=== PATIENT | female | born 1955 | race Caucasian/White ===

== ENCOUNTER 2016-05-31 14:43 | Outpatient (CLI) ==
[2015-09-30 20:53] VITALS: BMI 38.4
[2016-05-31 15:05] LABS: BASOPHILS % (AUTO) 0.4 % (0.0-3.0); EOSINOPHILS # (AUTO) 0.2 K/ul (0.0-0.7); EOSINOPHILS % (AUTO) 1.5 % (0.0-7.0); HEMATOCRIT 44.3 % (37.0-47.0); HEMOGLOBIN 14.7 g/dl (12.0-16.0); IMMATURE GRANULOCYTE % (AUTO) 0.3 % (0.0-5.0); LYMPHOCYTES # (AUTO) 4.9 K/uL (0.60-3.4); LYMPHOCYTES % (AUTO) 46.8 (10.0-50.0); MEAN CORPUSCULAR HEMOGLOBIN 30.2 pg (27.0-31.0); MEAN CORPUSCULAR HGB CONC 33.2 (31.8-35.4); MONOCYTES # (AUTO) 0.7 K/uL (0.4-2.0); MONOCYTES % (AUTO) 6.6 (0-10); NEUTROPHILS # (AUTO) 4.6 K/ul (2.0-6.9); NEUTROPHILS % (AUTO) 44.4; PLATELET COUNT 215 10^3/uL (140-440); RED BLOOD COUNT 4.87 10^6/ul (4.20-5.40); WHITE BLOOD COUNT 10.37 K/ul (4.6-10.2)
[2016-05-31 15:36] LABS: ALBUMIN 3.3 g/dL (3.4-5.0); ALBUMIN/GLOBULIN RATIO 0.83; ANION GAP 13.5; BILIRUBIN,TOTAL 0.31 mg/dL (0.00-1.20); BUN/CREATININE RATIO 16.66; CALCIUM 9.6 mg/dL (8.2-10.2); CHOL/HDL RATIO 4.2 (4.5-5.5); CREATININE 0.78 mg/dL (0.60-1.30); POTASSIUM 3.5 mmol/L (3.5-5.10); TOTAL PROTEIN 7.3 g/dL (5.8-8.1)
== END 2016-05-31 14:44 | disposition home or self-care (01) ==
LOC: LAB 14:43
PROVIDERS: ATTEND Emergency Medicine
DX: E11.9 Type 2 diabetes mellitus without complications (principal); I10 Essential (primary) hypertension; E78.5 Hyperlipidemia, unspecified
CPT/HCPCS: 36415; 80053; 80061; 83036; 84443; 85025

== ENCOUNTER 2016-06-03 12:33 | Outpatient (CLI) ==
[2015-09-30 20:53] VITALS: BMI 38.4
[2016-06-03 12:59] LABS: FLU INTERNAL QC INTERNAL QC VALID; RAPID FLU A NEGATIVE (NEGATIVE); RAPID FLU B NEGATIVE (NEGATIVE)
--- NOTE | 2016-06-03 13:08 | DI ---
EXAM: Chest two view, frontal and lateral views. HISTORY: Cough. COMPARISON: 09/30/2015, 04/21/2014. FINDINGS: The heart size is normal. There is no pulmonary vascular congestion. The lungs are dave r. No pleural effusion or pneumothorax is seen. No acute osseous abnormality identified. Since prior study, there has been no significant interval change. IMPRESSION: No acute cardiopulmonary process.
--- NOTE | 2016-06-03 14:26 | MRI ---
EXAM: MRI cervical spine without IV contrast. DATE: 03 June 2016. HISTORY: Neck pain, headache. TECHNIQUE: Sagittal and axial T1W and T2W sequences of the cervical spine along with sagittal IR an d coronal T2W sequences were obtained using 1.2 Sania magnet. No IV contrast. COMPARISON: MRI brain 25 October 2015. FINDINGS: Minimal rightward curvature of the upper cervical spine is seen. No acute c-spine fractu re, subluxation, osseous malignancy, or jumped facet is apparent. Cervical vertebra are normal in h eight. T2W/IR bright, T1W slightly dark, 3.8 mm focus in the anterior inferior endplate of C6 may b e due to degenerative endplate changes or small cyst. C5 vertebra is slightly narrow or in height c ompared to each other vertebra. Anterior osteophytes are most pronounced at C5-6 and C6-7. Cervica l intervertebral discs are normal in height. Spinal canal appears narrow at C3 through C6 levels. Cervical and upper thoracic spinal cord reveals no definitive syrinx, cord edema, myelomalacia, or n eoplasm. Visible brainstem and cerebellum are unremarkable. No definitive pituitary neoplasm is evident. Mi nor adenoid tissue prominence is likely benign. Mastoid air cells are normal bilaterally. Right lo be thyroid gland appears small in size, and the left thyroid lobe is not definitively seen. The sub mandibular and parotid glands are unremarkable. Trachea, larynx, and epiglottis are normal. No api tesha lung mass, pneumonia, or pleural effusion is detected. Segmental analysis: C1-2: No cord compression or central stenosis. A T2W bright, 17 x 5 x 12 mm crescentic focus in the lateral margin of the right C1/CT junction is likely a synovial cyst. C2-3: Minor posterior disc bulge (1.4 mm AP) does not contact the cord. Canal is 9.2 mm AP. Mild bilateral foraminal stenoses due to uncinate hypertrophy and mild bilateral facet arthropathy. C3-4: Short pedicles. Broad posterior disc/osteophyte complex (1.8 mm AP) does not cause cord comp ression. Canal is 7.7 mm AP. Moderate/marked right and moderate left foraminal stenoses are due to uncinate hypertrophy and mild/moderate right facet arthropathy. C4-5: Short pedicles. Broad posterior disc/osteophyte complex (1.7 mm AP) does not contact the cor d. Canal is 7.2 mm AP. Mild right and moderate/marked left foraminal stenoses are due to uncinate hypertrophy and mild facet arthropathy. C5-6: Short pedicles. Broad posterior disc/osteophyte complex (2.1 mm AP) does not contact the cor d. There is mild ligamentum flavum hypertrophy. Canal is 8.2 mm AP. Marked right and moderate lef t foraminal stenoses are due to uncinate hypertrophy, moderate right facet arthropathy and mild left facet arthropathy. C6-7: Broad posterior disc/osteophyte complex (2.2 mm AP) does not contact the cord. There is mild ligamentum flavum hypertrophy. Canal is 7.8 mm AP. Moderate right and mild left foraminal stenose s are due to uncinate hypertrophy and minor facet disease. C7-T1: Normal T1-2: Minor posterior disc bulge does not cause cord compression, central stenosis or foraminal humza nosis. IMPRESSIONS: 1. C-spine mild spondylosis, mild/moderate facet disease and multilevel DDD. 2. C1-2 arthritis with prominent synovial cyst near the right lateral joint space. 3. Multilevel central canal stenosis (C2-3: Mild. C3-4: Moderate. C4-5: Moderate. C5-6: Mild. C 6-7: Moderate). 4. Mild anterior cervical cord flattening. No syrinx or myelomalacia. 5. Multilevel high-grade foraminal stenosis as described. 6. Small thyroid gland. Correlate with surgical history.
== END 2016-06-03 12:34 | disposition home or self-care (01) ==
LOC: RAD 12:33
PROVIDERS: ATTEND Emergency Medicine
DX: R05 Cough (principal); R50.9 Fever, unspecified; R68.89 Other general symptoms and signs; M54.2 Cervicalgia; R51 Headache
CPT/HCPCS: 87804

== ENCOUNTER 2016-06-04 13:53 | Outpatient (CLI) ==
[2015-09-30 20:53] VITALS: BMI 38.4
--- NOTE | 2016-06-04 15:48 | MRI ---
EXAM: MRI brain without IV contrast. DATE: 04 June 2016. HISTORY: Headaches. TECHNIQUE: Sagittal T1W, axial T2W, axial FLAIR, axial T1W, axial DWI, and coronal T2W GRE sequence s of the brain were obtained using 1.2 Sania magnet. No IV contrast. COMPARISON: MRI brain 25 October 2015. FINDINGS: The ventricles and cisterns are normal in size and configuration. Many cerebral and cereb ellar sulci are mildly prominent due to involutional change. No midline shift, mass effect or locula bud extra-axial fluid collection is apparent. No acute infarct, hemorrhage or neoplasm is identifie d. Minimal T2W/FLAIR hyperintensity is observed in the white matter abutting each lateral ventricle . Small number 2-5 mm, T2W/FLAIR bright foci are scattered within the lai radiata and subcortica l white matter bilaterally. The jansen - white matter differentiation is normal. A T2W GRE dark focu s in the right globus pallidus appears benign. A T2W GRE dark focus (3 mm) in the region of the pin eal gland is likely benign calcification. The 7th/8th cranial nerve complexes, cerebellopontine ang les, brainstem, and visible cervical spinal cord are normal. The cerebellar tonsils extend near the inferior margin of the foramen magnum. There is no Chiari 1 malformation. The pituitary gland is normal in size and signal. Corpus callosum is normal in size and configuration. Left vertebral art wendy is larger than the right. Flow voids are present in the major intracranial arteries and in the dural venous sinuses. No aneurysm, AVM or dural venous sinus thrombosis is apparent. No orbit abno rmality is identified. The mastoid air cells are unremarkable. There is no sinus opacification. R ight maxillary sinus mucosal thickening vs small retention cyst (12 x 8.6 x 4 mm) is observed inferi donya. Frontal sinuses are hypoplastic. No neck mass or lymphadenopathy is detected. No calvarial neoplasm or acute fracture is evident. IMPRESSIONS: 1. No acute infarct, hemorrhage, mass or hydrocephalus. 2. Minimal/mild supratentorial small vessel disease. 3. Minor right basal ganglia benign mineral deposition. 4. Mild cerebral and cerebellar atrophy. 5. Minor right maxillary sinus disease.
== END 2016-06-04 13:54 | disposition home or self-care (01) ==
LOC: RAD 13:53
PROVIDERS: ATTEND Emergency Medicine
DX: R51 Headache (principal)

== ENCOUNTER 2016-06-24 09:00 | Outpatient (RCR) ==
[2015-09-30 20:53] VITALS: BMI 38.4
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
--- NOTE | 2016-06-24 11:04 | RS.OPPTDN ---
Subjective Date of Note: 06/24/16 Visit #: 2 Date of Evaluation: 06/19/16 Payer Source: Medicaid Treatment Diagnosis: Neck pain Current Subjective/complaints:: Patient reports her pain is tolerable this mornng ,but constantly present and it elevates as the day progresses. *Precautions: Left RTC repair Pain Assessment - Pain Description Pain Location: Neck and bilateal upper trap pain Pain Description: Tightness, Throbbing, Aching Pain Description: Constant pain with DEMARCO frequently Current Pain Intensity: 7/10 - Treatment Modality: Ultrasound Parameters/Method Applied: 10 mins. @ 1.5 w/cm2 to cervical/UT's. Patient Position: Sitting - Heat/Cryotherapy Treatment: Hot Pack (20 mins. prior to US) Interventions - Exercise/Activities/Manual Therapy Exercises/Activities: 10 mins. instruction in cervical ROM ,chin tucks,postural awareness. Total minutes of Exercise: 10 Manual Therapy: NA Total minutes of Manual Therapy: 0 HOME EXERCISE PROGRAM: pendulum exercise, scapular retraction - Charges Total Direct Minutes: 20 Total Treatment Time: 40 Procedures billed for this date of service:: hp,US,ex 1 Assessment: Patient attentive ,and motivated to improve.She does present with decreased cervical lordosis,guarded with all motions. Patient Education: Education of diagnosis, Body/Joint mechanics, Home Exercise Program, Home Safety, Activity Modification, Education of Plan of Care Short Term Goals Goal #1: Pt independent and compliant with basic HEP. Goal to be met by: 06/28/16 Progress towards Goal:: Progressing Goal #2: CROM WFL's. Goal to be met by: 06/28/16 Goal #3: Decreased neck pain to intermittent. Goal to be met by: 06/28/16 Goal to be met by: 02/02/16 Obstetrician Gynecologist Goals Goal #1: Pt knows HEP and to continue with exercises after D/C from therapy. Goal to be met by: 07/05/16 Goal #2: NDI score 18 Goal to be met by: 07/05/16 Goal #3: Neck pain < 5/10 Goal to be met by: 07/05/16 Goal #4: Pt able to perform all work related activities without limitation. Goal to be met by: 07/05/16 Plan PLAN OF CARE EXPIRES ON:: 07/05/16 ORDER # VISITS AND/OR THROUGH DATE: 07/05/2016 PLAN: Continue Plan of Care
== END 2016-07-02 ==
PROVIDERS: ATTEND Orthopaedic Surgery
DX: M50.30 Other cervical disc degeneration, unspecified cervical region (principal); M48.02 Spinal stenosis, cervical region; M99.81 Other biomechanical lesions of cervical region

== ENCOUNTER 2016-07-03 15:43 | Outpatient (RCR) ==
[2015-09-30 20:53] VITALS: BMI 38.4
--- NOTE | 2016-07-03 15:52 | RS.OPPTDN ---
Subjective Date of Note: 07/03/16 Visit #: 3 Date of Evaluation: 06/19/16 Payer Source: Medicaid Treatment Diagnosis: Neck pain Current Subjective/complaints:: Patient reports having a headache all the time. States she has one now. States her neck is not too bad today because she did not work. Pain Assessment - Pain Description Pain Location: Neck and head Current Pain Intensity: not rated, neck not as bad, but currently has DEMARCO - Treatment Modality: Ultrasound Parameters/Method Applied: X 10 mins to bilateral upper traps and lower cervical paraspinals @ 1.5 w/cm2 continuous Patient Position: Sitting - Heat/Cryotherapy Treatment: Hot Pack (X 15 mins to cervical spine prior to US) Interventions - Exercise/Activities/Manual Therapy Exercises/Activities: Reviewed scapular retraction and cervical retraction. Patient given 2 tennis balls and instructed on use of these for pressure at the subocciptal region to decrease DEMARCO pain. Total minutes of Exercise: x 6 mins Manual Therapy: soft tissue mobilization of suboccipital region for 5 mins. Patient reported resolution of DEMARCO pain following this treatment. HOME EXERCISE PROGRAM: scapular retraction, cervical retraction, - Charges Total Direct Minutes: 21 mins Total Treatment Time: 36 mins Procedures billed for this date of service:: , US Assessment: Patient reports resolution of headache pain with therapy treatment today. She is very receptive of information to use tennis balls to base of head to decrease headache pain. Patient Education: Education of diagnosis, Body/Joint mechanics, Home Exercise Program, Education of Plan of Care Short Term Goals Goal #1: Pt independent and compliant with basic HEP. Goal to be met by: 06/28/16 Progress towards Goal:: Progressing Goal #2: CROM WFL's. Goal to be met by: 06/28/16 Goal #3: Decreased neck pain to intermittent. Goal to be met by: 06/28/16 Progress towards Goal:: Progressing Alf Goals Goal #1: Pt knows HEP and to continue with exercises after D/C from therapy. Goal to be met by: 07/05/16 Goal #2: NDI score 18 Goal to be met by: 07/05/16 Goal #3: Neck pain < 5/10 Goal to be met by: 07/05/16 Progress towards goal: Progressing Goal #4: Pt able to perform all work related activities without limitation. Goal to be met by: 07/05/16 Plan PLAN OF CARE EXPIRES ON:: 07/05/16 ORDER # VISITS AND/OR THROUGH DATE: 07/05/2016 PLAN: Continue Plan of Care
--- NOTE | 2016-08-20 10:28 | RS.QUICKDC ---
Discharge from PT Date of Discharge: 07/08/16 Number of Visits: 3 Reason for Discharge: Patient eval orders are for 2x/wk for 2 weeks,seen 3/4 sessions,then order dates .
== END 2016-08-02 ==
PROVIDERS: ATTEND Orthopaedic Surgery
DX: M50.30 Other cervical disc degeneration, unspecified cervical region (principal); M48.02 Spinal stenosis, cervical region; M99.81 Other biomechanical lesions of cervical region

== ENCOUNTER 2016-10-29 10:57 | Outpatient (CLI) ==
[2015-09-30 20:53] VITALS: BMI 38.4
[2016-10-29 11:17] LABS: BASOPHILS % (AUTO) 0.3 % (0.0-3.0); EOSINOPHILS # (AUTO) 0.2 K/ul (0.0-0.7); EOSINOPHILS % (AUTO) 1.7 % (0.0-7.0); HEMATOCRIT 43.9 % (37.0-47.0); HEMOGLOBIN 14.5 g/dl (12.0-16.0); IMMATURE GRANULOCYTE % (AUTO) 0.3 % (0.0-5.0); LYMPHOCYTES # (AUTO) 3.7 K/uL (0.60-3.4); LYMPHOCYTES % (AUTO) 39.1 (10.0-50.0); MEAN CORPUSCULAR HEMOGLOBIN 30.4 pg (27.0-31.0); MONOCYTES # (AUTO) 0.6 K/uL (0.4-2.0); MONOCYTES % (AUTO) 6.6 (0-10); NEUTROPHILS # (AUTO) 4.9 K/ul (2.0-6.9); PLATELET COUNT 186 10^3/uL (140-440); RED BLOOD COUNT 4.77 10^6/ul (4.20-5.40); WHITE BLOOD COUNT 9.36 K/ul (4.6-10.2)
[2016-10-29 12:15] LABS: ALBUMIN 3.1 g/dL (3.4-5.0); ALBUMIN/GLOBULIN RATIO 0.86; ANION GAP 10.8; BILIRUBIN,TOTAL 0.48 mg/dL (0.00-1.20); BUN/CREATININE RATIO 18.18; CALCIUM 9.3 mg/dL (8.2-10.2); CHOL/HDL RATIO 4.3 (4.5-5.5); CREATININE 0.77 mg/dL (0.60-1.30); POTASSIUM 3.8 mmol/L (3.5-5.10); TOTAL PROTEIN 6.7 g/dL (5.8-8.1)
== END 2016-10-29 10:58 | disposition home or self-care (01) ==
LOC: LAB 10:57
PROVIDERS: ATTEND Internal Medicine
DX: E11.9 Type 2 diabetes mellitus without complications (principal); E78.5 Hyperlipidemia, unspecified; I10 Essential (primary) hypertension
CPT/HCPCS: 36415; 80053; 80061; 83036; 84443; 85025

== ENCOUNTER 2016-10-30 10:05 | Outpatient (CLI) ==
[2015-09-30 20:53] VITALS: BMI 38.4
--- NOTE | 2016-10-30 23:16 | MRI ---
EXAM: Lumbar spine MRI without contrast. HISTORY: Back pain. COMPARISON: Lumbar spine radiographs 11/17/2013. TECHNIQUE: Multiplanar, multisequence MR images were acquired of the lumbar spine without contrast. FINDINGS: Five lumbar-type vertebra are present. There is mild kyphosis at the thoracolumbar junct ion due to minor T11 and mild T12 chronic anterior wedging and mild chronic left anterior wedging of L1. No acute compression fractures are present. There is 1.5 mm retrolisthesis of L2 on L3 and a t race retrolisthesis of L3 on L4 and L4 on L5. Intrinsic bone marrow signal is normal. Prominent ve ntral osteophytes are present from T12-L1 to L3-4. There is endplate irregularity with disc space n arrowing and chronic Schmorl's nodes from T11-12 to L2-3. There is disc desiccation at L2-3. Conus medullaris ends at T12-L1 and has normal signal intensity. 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 The partially visualized liver, spleen and kidneys are unremarkable. There are no paravertebral mas ses. T12-L1: The intervertebral disc is normal. L1-2: The intervertebral disc is normal. L2-3: There is a mild disc bulge and mild bilateral facet arthropathy and ligamentum flavum hypertr ophy. This causes mild bilateral foraminal stenosis. There is no central canal stenosis. L3-4: There is a minor disc bulge that is asymmetric to the left which minimally narrows the inferi or left neural foramen. Mild bilateral facet arthropathy and ligamentum flavum hypertrophy is prese nt. There is no significant foraminal stenosis. L4-5: There is a minor left posterior disc bulge and mild bilateral hypertrophic facet arthropathy a nd ligamentum flavum hypertrophy without central canal stenosis. There is minor left foraminal sten osis. L5-S1: The intervertebral disc is normal. There is mild bilateral hypertrophic facet arthropathy an d ligamentum flavum hypertrophy. Tiny bilateral facet effusions are present. There is mild taperin g of the thecal sac. There is no foraminal stenosis. IMPRESSION: 1. Mild kyphosis is present at the thoracolumbar junction due to minor and mild chronic anterior we dging of the T11-L1 vertebra. 2. Mild lower thoracic and lumbar degenerative spondylosis with prominent ventral osteophytes from T12-L1 to L3- 4. 3. No lumbar disc herniations, spinal stenosis or significant foraminal stenosis.
== END 2016-10-30 10:06 | disposition home or self-care (01) ==
LOC: RAD 10:05
PROVIDERS: ATTEND Internal Medicine
DX: M54.9 Dorsalgia, unspecified (principal)

== ENCOUNTER 2016-11-06 11:11 | Outpatient (CLI) ==
[2015-09-30 20:53] VITALS: BMI 38.4
--- NOTE | 2016-11-08 08:58 | MAMMO ---
EXAM: Bilateral digital screening mammogram History: Screening Comparison: Bilateral mammogram 08/19/2011 Findings: MLO and CC views of bilateral breasts demonstrate predominately fatty replaced breast par enchyma. Stable benign bilateral breast calcifications. There are no dominant masses, no suspiciou s microcalcifications and no architectural distortions Impression: Benign stable mammogram. Recommend followup routine screening mammography in 1 year. BIRADS 2
== END 2016-11-06 11:12 | disposition home or self-care (01) ==
LOC: RAD 11:11
PROVIDERS: ATTEND Internal Medicine
DX: Z12.31 Encounter for screening mammogram for malignant neoplasm of breast (principal)

== ENCOUNTER 2017-03-03 16:16 | Outpatient (CLI) ==
[2015-09-30 20:53] VITALS: BMI 38.4
[2017-03-03 16:28] LABS: BASOPHILS % (AUTO) 0.3 % (0.0-3.0); EOSINOPHILS # (AUTO) 0.2 K/ul (0.0-0.7); EOSINOPHILS % (AUTO) 1.7 % (0.0-7.0); HEMATOCRIT 44.8 % (37.0-47.0); HEMOGLOBIN 14.7 g/dl (12.0-16.0); IMMATURE GRANULOCYTE % (AUTO) 0.1 % (0.0-5.0); LYMPHOCYTES # (AUTO) 4.4 K/uL (0.60-3.4); LYMPHOCYTES % (AUTO) 45.2 (10.0-50.0); MEAN CORPUSCULAR HGB CONC 32.8 (31.8-35.4); MEAN CORPUSCULAR VOLUME 91.4 fl (81.0-99.0); MONOCYTES # (AUTO) 0.6 K/uL (0.4-2.0); MONOCYTES % (AUTO) 6.5 (0-10); NEUTROPHILS # (AUTO) 4.5 K/ul (2.0-6.9); NEUTROPHILS % (AUTO) 46.2; PLATELET COUNT 199 10^3/uL (140-440); WHITE BLOOD COUNT 9.73 K/ul (4.6-10.2)
[2017-03-03 17:06] LABS: ALBUMIN/GLOBULIN RATIO 0.71; ANION GAP 11.5; BILIRUBIN,TOTAL 0.39 mg/dL (0.00-1.20); BUN/CREATININE RATIO 18.98; CALCIUM 9.6 mg/dL (8.2-10.2); CREATININE 0.79 mg/dL (0.60-1.30); POTASSIUM 3.5 mmol/L (3.5-5.10); TOTAL PROTEIN 7.2 g/dL (5.8-8.1)
== END 2017-03-03 16:17 | disposition home or self-care (01) ==
LOC: LAB 16:16
PROVIDERS: ATTEND Internal Medicine
DX: E11.9 Type 2 diabetes mellitus without complications (principal); I10 Essential (primary) hypertension; E66.9 Obesity, unspecified
CPT/HCPCS: 36415; 80053; 80061; 83036; 84439; 84443; 85025

== ENCOUNTER 2017-05-02 15:10 | Outpatient (CLI) ==
[2015-09-30 20:53] VITALS: BMI 38.4
--- NOTE | 2017-05-02 15:39 | DI ---
Exam: Two x-rays of the left hip. Comparison: CT abdomen pelvis performed 09/30/2015. Reason for exam: Left hip pain. FINDINGS: No acute fracture or malalignment. The joint spaces well maintained. The femoral head ar ticulates with the acetabulum. Degenerative findings are seen adjacent to the greater trochanter. Impression: No acute fracture or malalignment is seen within the left hip with mild to moderate dege nerative disease.
== END 2017-05-02 15:11 | disposition home or self-care (01) ==
LOC: RAD 15:10
PROVIDERS: ATTEND Internal Medicine
DX: M25.552 Pain in left hip (principal)

== ENCOUNTER 2017-07-04 14:58 | Outpatient (CLI) ==
[2015-09-30 20:53] VITALS: BMI 38.4
== END 2017-07-04 14:59 | disposition home or self-care (01) ==
LOC: LAB 14:58
PROVIDERS: ATTEND Internal Medicine
DX: E78.5 Hyperlipidemia, unspecified (principal); E11.9 Type 2 diabetes mellitus without complications; I10 Essential (primary) hypertension; E66.9 Obesity, unspecified
CPT/HCPCS: 36415; 80053; 80061; 83036; 84439; 84443; 85025

== ENCOUNTER 2017-08-26 06:28 | Outpatient (CLI) ==
[2015-09-30 20:53] VITALS: BMI 38.4
--- NOTE | 2017-08-26 10:52 | ECHO2D ---
Date of Exam: 08/26/17 Ordering Physician: DR. BORA HOPPER Room #: OP Reason for Echo: CHEST PAIN, PALPITATIONS M-Mode Normal Adult Results LV Dimensions Normal Adult Results AoV Opening excursions >1.6 >1.6 LVEDD-base- 3.5-5.8 4.3 Ao root dimensions 2.0-3.7 3.2 LVESD-base- 3.1-4.6 L. Atrium dimensions 1.9-3.8 4.2 Post. Wall thickness 0.8-1.1 1.2 IV septum (thickness) 0.7-1.2 1.3 Post. Wall excursion 0.72-1.3 NORMAL Septal motion NORMAL Systolic motion R. Ventricular cavity 1.5-2.0 NORMAL LVEF 60% 53% Paradoxical septal wall motion NORMAL 2-D : 2-D M Mode Echocardiogram was performed using apical four chamber and left parasternal long and short axis views. Mitral, tricuspid and aortic valves appear to be normal. Contractility of the left ventricle seems to be normal, so is the cavity size. Left atrial cavity size and aortic root appear to be normal. There is no pericardial effusion. There is no thrombus noted in the left ventricular or left aortic cavity. No mitral valve prolapse noted. M-MODE: MV: NORMAL AV: NORMAL TV: NORMAL PV: CHAMBER SIZE: MILD LEFT ATRIAL CAVITY ENLARGEMENT WALL MOTION: NORMAL PERICARDIUM: NORMAL INTERPRETATION: 1. BORDERLINE LEFT VENTRICULAR HYPERTROPHY WITH LEFT ATRIAL CAVITY ENLARGEMENT 2. NORMAL LEFT VENTRICULAR CONTRACTILITY 3. NORMAL VALVES MTDD
== END 2017-08-26 06:29 | disposition home or self-care (01) ==
LOC: CAR 06:28
PROVIDERS: ATTEND Internal Medicine
DX: R00.2 Palpitations (principal); R07.9 Chest pain, unspecified

== ENCOUNTER 2017-08-27 06:29 | Outpatient (CLI) ==
[2015-09-30 20:53] VITALS: BMI 38.4
--- NOTE | 2017-08-27 11:33 | STRESSECHO ---
Date of Test: 08/27/17 Reason for Exam: CHEST PAIN, PALPITATIONS, DM, HYPERTENSION Ordering Physician: DR. BORA HOPPER Current Medications: LISINOPRIL, METOPROLOL, METFORMIN, LEVOTHYROXINE, ASA, MELOXICAN, INSULIN, PRAVASTATIN Resting EKG: SINUS RHYTHM/ NO ACUTE CHANGES Target Heart Rate: 135/159 S-T SEGMENT STAGE MPH/GRADE HEART RATE BPM BLOOD PRESSURE [facility] RHYTHM +/- ELEVATION DEPRESSION SYMPTOMS,COMMENTS At Rest 80 122/76 SR X NONE 1 1.7/10% 2 2.5/12% 3 3.4/14% 4 4.2/16% 5 5.0/18% Immediately after 140 140/68 SR X SHORT OF AIR Durations of Exercise: 2:10 Maximum Heart Rate Reached: 140 BPM Reason for Termination: SHORT OF AIR 3 MINUTES POST EXERCISE: HR 90 BPM, BP 142/70 [facility] INTERPRETATION: 95% OXYGEN SATURATION WITH EXERCISE ON ROOM AIR METS 4.6 1. TEST POSITIVE FOR ISCHEMIC ST-T WAVE 2. NO CHEST PAIN OR DISCOMFORT 3. NO ARRHYTHMIA 4. BLOOD PRESSURE RESPONSE: NORMAL NORMAL LEFT VENTRICULAR CONTRACTILITY--RESTING AND POST EXERCISE MTDD
--- NOTE | 2017-08-27 11:36 | ECHOSTRESS ---
Date of Exam: 08/27/17 Ordering Physician: DR. BORA HOPPER Reason for Echo: CHEST PAIN, STRESS TEST--POSITIVE FOR ISCHEMIA M-Mode Normal Adult Results LV Dimensions Normal Adult Results AoV Opening excursions >1.6 LVEDD-base- 3.5-5.8 Ao root dimensions 2.0-3.7 LVESD-base- 3.1-4.6 L. Atrium dimensions 1.9-3.8 Post. Wall thickness 0.8-1.1 IV septum (thickness) 0.7-1.2 Post. Wall excursion 0.72-1.3 Septal motion Systolic motion R. Ventricular cavity 1.5-2.0 LVEF 60% Paradoxical septal wall motion 2-D: NORMAL LEFT VENTRICULAR CONTRACTILITY--RESTING AND POST EXERCISE M-MODE: MV: AV: TV: PV: CHAMBER SIZE: WALL MOTION: NORMAL LEFT VENTRICULAR CONTRACTILITY--RESTING AND POST EXERCISE PERICARDIUM: INTERPRETATION: 1. NORMAL LEFT VENTRICULAR CONTRACTILITY--RESTING AND POST EXERCISE MTDD
== END 2017-08-27 06:30 | disposition home or self-care (01) ==
LOC: CAR 06:29
PROVIDERS: ATTEND Internal Medicine
DX: R00.2 Palpitations (principal); R07.9 Chest pain, unspecified

== ENCOUNTER 2017-08-28 08:50 | Outpatient (CLI) ==
[2015-09-30 20:53] VITALS: BMI 38.4
== END 2017-08-28 08:51 | disposition home or self-care (01) ==
LOC: CAR 08:50
PROVIDERS: ATTEND Internal Medicine
DX: R00.2 Palpitations (principal); R07.9 Chest pain, unspecified
CPT/HCPCS: 93227

== ENCOUNTER 2017-10-02 12:40 | Outpatient (CLI) ==
[2015-09-30 20:53] VITALS: BMI 38.4
== END 2017-10-02 12:41 | disposition home or self-care (01) ==
LOC: LAB 12:40
PROVIDERS: ATTEND Internal Medicine
DX: E78.5 Hyperlipidemia, unspecified (principal); I10 Essential (primary) hypertension; E11.9 Type 2 diabetes mellitus without complications; E88.81 Metabolic syndrome and other insulin resistance
CPT/HCPCS: 36415; 80053; 80061; 83036; 84439; 84443; 85025

== ENCOUNTER 2017-11-26 09:18 | Outpatient (CLI) ==
[2015-09-30 20:53] VITALS: BMI 38.4
== END 2017-11-26 09:19 | disposition home or self-care (01) ==
LOC: LAB 09:18
PROVIDERS: ATTEND Internal Medicine Cardiovascular Disease
DX: R06.02 Shortness of breath (principal); Z01.818 Encounter for other preprocedural examination
CPT/HCPCS: 36415; 80053; 85025

== ENCOUNTER 2022-06-03 14:57 | Observation (INO) ==
[2022-06-03 15:04] VITALS: BMI 37.6
[2022-06-03] MEDS ORDERED: DUONEB NEB ONE (15:09)
[2022-06-03] MEDS ORDERED: SOLU-MEDROL 125 MG IM ONE (15:09)
--- NOTE | 2022-06-03 15:13 | ED.PDOC ---
General ED Provider: Dr. GORAN DOSIH MD Chief Complaint: Cough Stated Complaint: mild short of breath and wheezing today, dry cough with off and on fever, no lethargy, +body aches, no rash, hx obese, dm and htn Time Seen by Provider: 06/03/22 14:58 Mode of Arrival: Walk-In Information Source: Patient Primary Care Provider: BORA JACKSON MD Nursing and Triage Documentation Reviewed and Agree: Yes Does patient meet sepsis criteria?: No System Inflammatory Response Syndrome: Not Applicable Sepsis Protocol: For patient's 13 years and over: Temp is 96.8 and below OR 101 and greater Pulse >90 BPM Resp >20/minute Acutely Altered Mental Status Are patient's symptoms suggestive of a new infection, such as: -Pneumonia -Skin, Soft Tissue -Endocarditis -UTI -Bone, Joint Infection -Implantable Device -Acute Abdominal Infection -Wound Infection -Meningitis -Blood Stream Catheter Infection -Unknown Review of Systems Review Of Systems Constitutional: Reports Fever and Malaise Eyes: Denies Vision change Ears, Nose, Mouth, Throat: Denies Nose discharge or Throat pain Respiratory: Reports Cough, Short of air and Wheezing; Denies Stridor Cardiac: Denies Chest pain GI: Denies Abdominal pain or Vomiting : Denies Frequency Musculoskeletal: Reports Muscle pain Skin: Denies Rash or Cyanosis Neurological: Denies Cognitive dysfunction All Other Systems: Other [facility] Medical History (Updated 06/03/22 @ 16:34 by GORAN DOSHI MD) Diabetes High blood pressure High cholesterol Hypothyroid Social History Smoking and tobacco status: Former smoker Surgical History History of hysterectomy Hx of appendectomy Female Reproductive History Menstrual Hx Hysterectomy: Yes Hx Tubal Ligation: No Physical Exam Physical Exam Appearance: Reports Obese Ill-appearing: None Pain Distress: None Eyes: Reports JACKIE, EOMI and Conjunctiva clear ENT: Reports Oropharynx normal Neck: Supple Respiratory: Reports Airway patent and Wheezes Cardiovascular: Reports RRR GI/: Reports Soft and Nontender Musculoskeletal: Reports ROM intact Skin: Reports Warm and Dry Neurological: Reports Alert and Oriented Psychiatric: Reports Affect appropriate Interpretation Radiology Interpretation Radiology Interpretation By: Radiologist Radiology Results: No acute changes Exam Interpreted: CXR EKG Interpretation Time of EKG #1: 16:32 Rate: Normal Rhythm: Sinus Interpretation: lvh, no stemi Critical Care Note Critical Care Note Total Critical Care Time (mins): 0 Course Course Hematology/Chemistry: 06/03/22 15:22 06/03/22 15:22 Orders, Labs, Meds: Lab Review 06/03/22 06/03/22 06/03/22 15:15 15:15 15:22 WBC 17.22 H RBC 4.94 Hgb 15.1 Hct 45.6 MCV 92.3 MCH 30.6 MCHC 33.1 RDW Coeff of Haider 13.0 Plt Count 228 Neutrophils % (Manual) 43.0 Lymphocytes % (Manual) 33.0 Monocytes % (Manual) 5.0 Reactive Lymphocytes 19.0 H Anisocytosis Not present Sodium Potassium Chloride Carbon Dioxide Anion Gap BUN Creatinine Estimated GFR (MDRD) BUN/Creatinine Ratio Glucose Lactic Acid Calcium Total Bilirubin AST ALT Alkaline Phosphatase Troponin I NT-Pro-B Natriuret Pep Total Protein Albumin Globulin Albumin/Globulin Ratio Influ A Molecular Assay Negative by naat Influ B Molecular Assay Negative by naat SARS CoV-2 RNA Rapid BALBIR Negative 06/03/22 06/03/22 15:22 15:22 WBC RBC Hgb Hct MCV MCH MCHC RDW Coeff of Haider Plt Count Neutrophils % (Manual) Lymphocytes % (Manual) Monocytes % (Manual) Reactive Lymphocytes Anisocytosis Sodium 138.7 Potassium 3.34 L Chloride 102.3 Carbon Dioxide 31.2 H Anion Gap 8.54 BUN 17.8 H Creatinine 0.77 Estimated GFR (MDRD) 75.00 BUN/Creatinine Ratio 23.11 Glucose 82.7 Lactic Acid 1.43 Calcium 9.17 Total Bilirubin 0.81 AST 43.2 H ALT 38.4 H Alkaline Phosphatase 99.6 Troponin I < 0.012 NT-Pro-B Natriuret Pep 67.400 Total Protein 7.74 Albumin 4.11 Globulin 3.63 Albumin/Globulin Ratio 1.13 Influ A Molecular Assay Influ B Molecular Assay SARS CoV-2 RNA Rapid BALBIR Orders Category Date Time Status ABG DRAW REQUEST Stat CARDIO 06/03/22 16:24 Ordered EKG-(ED ONLY) Stat CARDIO 06/03/22 15:09 Completed ABG COOX Stat LAB 06/03/22 16:24 Ordered CBC W/ AUTO DIFF Stat LAB 06/03/22 15:22 Completed CMP [COMPREHENSIVE METABOLIC PANEL] Stat LAB 06/03/22 15:22 Completed LACTIC ACID Stat LAB 06/03/22 15:22 Completed MANUAL DIFFERENTIAL Stat LAB 06/03/22 15:22 Completed MOLECULAR FLU A & B [FLU A/B MOLECULAR] Stat LAB 06/03/22 15:15 Completed NT-PROBNP Stat LAB 06/03/22 15:22 Completed RAPID STREP SCREEN [MOLECULAR GROUP A STREP] Stat LAB 06/03/22 15:15 Completed SARS COV-2 RNA RAPID BALBIR Stat LAB 06/03/22 15:15 Completed TROPONIN I Stat LAB 06/03/22 15:22 Completed Ipratropium/Albuterol Neb [Duoneb] MEDS 06/03/22 15:09 Discontinued 3 ml NEB ONCE ONE Methylprednisolone Sod Succ/Pf [Solu-Medrol 125 mg] MEDS 06/03/22 15:09 Disc ontinued 125 mg IM ONCE ONE CHEST, 1V AP ONLY Stat RADS 06/03/22 15:09 Completed Medications Discontinued Medications Generic Name Dose Route Start Last Admin Trade Name Freq PRN Reason Stop Dose Admin Albuterol/Ipratropium 3 ml 06/03/22 15:09 06/03/22 15:37 Ipratropium/Albuterol Vial.Neb NEB 06/03/22 15:10 3 ml ONCE ONE Administration Methylprednisolone Sodium Succinate 125 mg 06/03/22 15:09 06/03/22 15:26 Methylprednisolone Sod Succ/Pf 125 Mg/2 Ml Vial IM 06/03/22 15:10 125 mg ONCE ONE Administration Vital Signs: Temp Pulse Resp BP Pulse Ox 06/03/22 14:58 97.9 F 74 20 153/80 H 96 Discharge Plan Discharge Patient Disposition: ADMITTED INPATIENT Discharge Problem: Reactive airway disease, Leukocytosis Prescriptions: No Action metformin 1,000 MG tablet 1,000 mg PO BIDAC levothyroxine [Synthroid] 125 MCG tablet 125 mcg PO QDAC metoprolol tartrate 50 MG tablet 50 mg PO BEDTIME lisinopril-hydrochlorothiazide 1 EACH tablet 1 ea PO BEDTIME aspirin 81 MG tablet,delayed release (DR/EC) 81 mg PO DAILYWM hydrocodone-acetaminophen [[place]] 1 EACH tablet 1 ea PO Q4-6H PRN (Reason: PAIN) insulin glargine [Basaglar KwikPen U-100 Insulin] 100 unit/mL (3 mL) Insulin Pen 60 unit SUBCUT BID atorvastatin 40 mg tablet 40 mg PO DAILY Label Comments: TAKE 1 TABLET BY MOUTH EVERY DAY Did you review [place] [employer] for ALL controlled substances?: Not Applicable ED Provider: GORAN DOSHI Condition: Stable Physician Progress Note: []admit to tele d/w Dr Jackson
[2022-06-03 15:26] LABS: HEMATOCRIT 45.6 % (37.0-47.0); HEMOGLOBIN 15.1 g/dl (12.0-16.0); MEAN CORPUSCULAR HEMOGLOBIN 30.6 pg (27.0-31.0); MEAN CORPUSCULAR HGB CONC 33.1 (31.8-35.4); MEAN CORPUSCULAR VOLUME 92.3 fl (81.0-99.0); PLATELET COUNT 228 10^3/uL (140-440); RED BLOOD COUNT 4.94 10^6/ul (4.20-5.40); WHITE BLOOD COUNT 17.22 K/ul (4.6-10.2)
--- NOTE | 2022-06-03 15:29 | DI ---
EXAM: Frontal view of the chest. HISTORY: Weakness. COMPARISON: Chest radiograph 08/27/2020. FINDINGS: Mild atherosclerotic calcifications of the aorta. Normal heart size. No acute consolidation. No visible pleural effusion or pneumothorax. No acute osseous abnormality. IMPRESSION: No acute process.
[2022-06-03 15:41] LABS: ALANINE AMINOTRANSFERASE 38.4 U/L (0-35); ALBUMIN 4.11 g/dL (3.5-5.0); ALKALINE PHOSPHATASE 99.6 U/L (53-141); ASPARTATE AMINO TRANSFERASE 43.2 U/L (14-36); BILIRUBIN,TOTAL 0.81 mg/dL (0.2-1.3); BLOOD UREA NITROGEN 17.8 mg/dL (7-17); CALCIUM 9.17 mg/dL (8.4-10.2); CARBON DIOXIDE 31.2 mmol/L (22-30.0); CHLORIDE 102.3 mmol/L (98-107); CREATININE 0.77 mg/dL (0.60-1.30); GLUCOSE 82.7 mg/dL (74-106); POTASSIUM 3.34 mmol/L (3.5-5.1); SODIUM 138.7 mmol/L (134.5-145); TOTAL PROTEIN 7.74 g/dL (6.3-8.2)
[2022-06-03 15:43] LABS: ANISOCYTOSIS NOT PRESENT (NOT PRESENT)
[2022-06-03 15:48] LABS: MOLECULAR FLU A NEGATIVE BY NAAT (NEGATIVE); MOLECULAR FLU B NEGATIVE BY NAAT (NEGATIVE)
[2022-06-03 15:54] LABS: TROPONIN I < 0.012 ng/ml (0.0000-0.120)
[2022-06-03 16:04] LABS: SARS COV-2 RNA RAPID NAAT NEGATIVE (NEGATIVE)
[2022-06-03] MEDS ORDERED: TYLENOL PO PRN ×2 (16:34→17:58)
[2022-06-03 16:46] LABS: ABG PH 7.47 (7.35-7.45); BEecf 8.3 (-2.0-3.0); MetHb 1.2 (0-1.5); TCO2 33.4 (19-24); sO2 89.7 % (94-98); tHb 15.1 g/dl (11.7-17.4)
[2022-06-03] MEDS ORDERED: NITROSTAT SL PRN (17:58)
[2022-06-03] MEDS ORDERED: ATROPINE SULFATE PFS IVP PRN (17:58)
[2022-06-03 18:37] LABS: BILIRUBIN,URINE Negative (NEGATIVE); CLARITY,URINE Clear (CLEAR); COLOR,URINE Yellow (YELLOW); GLUCOSE, URINE (UA) Negative (NEGATIVE); KETONES,URINE Trace (NEGATIVE); LEUKOCYTE ESTERASE ,URINE Negative (NEGATIVE); NITRITE,URINE Negative (NEGATIVE); PH,URINE 5.5 (5-9); PROTEIN,URINE Negative (NEGATIVE); URINE, BLOOD Negative (NEGATIVE); UROBILINOGEN,URINE 0.2 (0.2)
[2022-06-03] MEDS: SODIUM CHLORIDE 1,000 ML IV SCH (19:05)
[2022-06-03] MEDS: ALBUTEROL 0.083% NEB NEB SCH (20:00)
[2022-06-03] MEDS: LOPRESSOR PO SCH (20:40)
[2022-06-03] MEDS: HYDROCHLOROTHIAZIDE PO SCH (20:40)
[2022-06-03] MEDS: SOLU-MEDROL 40 MG IVP SCH (20:41)
[2022-06-03] MEDS: ZESTRIL PO SCH (20:41)
[2022-06-03] MEDS: HUMULIN R SUBCUT PRN (20:41)
[2022-06-03] MEDS ORDERED: LISINOPRIL HYDROCHLOROTHIAZIDE PO SCH (21:00)
[2022-06-04] MEDS: SOLU-MEDROL 40 MG IVP SCH ×3 (04:57→21:26)
[2022-06-04] MEDS: ALBUTEROL 0.083% NEB NEB SCH ×2 (05:00→09:29)
[2022-06-04] MEDS: SYNTHROID PO SCH ×2 (06:00)
[2022-06-04] MEDS: HUMULIN R SUBCUT PRN ×4 (06:00→20:58)
[2022-06-04] MEDS ORDERED: NON-FORMULARY MEDICATION (Levothyroxine [Synthroid] 125 MCG tablet) PO SCH (06:30)
[2022-06-04 06:51] LABS: BASOPHILS % (AUTO) 0.1 % (0.0-3.0); HEMATOCRIT 43.8 % (37.0-47.0); HEMOGLOBIN 14.3 g/dl (12.0-16.0); IMMATURE GRANULOCYTE % (AUTO) 0.4 % (0.0-5.0); LYMPHOCYTES # (AUTO) 1.4 K/uL (0.60-3.4); LYMPHOCYTES % (AUTO) 14.3 (10.0-50.0); MEAN CORPUSCULAR HGB CONC 32.6 (31.8-35.4); MONOCYTES # (AUTO) 0.3 K/uL (0.4-2.0); MONOCYTES % (AUTO) 2.7 (0-10); NEUTROPHILS # (AUTO) 8.3 K/ul (2.0-6.9); NEUTROPHILS % (AUTO) 82.5 % (42.2-75.2); PLATELET COUNT 181 10^3/uL (140-440); RED BLOOD COUNT 4.76 10^6/ul (4.20-5.40); WHITE BLOOD COUNT 10.01 K/ul (4.6-10.2)
[2022-06-04 07:04] LABS: ALBUMIN 3.85 g/dL (3.5-5.0); ALKALINE PHOSPHATASE 109.7 U/L (53-141); ASPARTATE AMINO TRANSFERASE 43.4 U/L (14-36); BILIRUBIN,TOTAL 0.74 mg/dL (0.2-1.3); CALCIUM 8.59 mg/dL (8.4-10.2); CARBON DIOXIDE 28.8 mmol/L (22-30.0); CHLORIDE 99.3 mmol/L (98-107); CREATININE 0.63 mg/dL (0.60-1.30); GLUCOSE 296.7 mg/dL (74-106); POTASSIUM 3.25 mmol/L (3.5-5.1); SODIUM 135.2 mmol/L (134.5-145)
[2022-06-04 07:09] LABS: ALANINE AMINOTRANSFERASE 39.7 U/L (0-35)
[2022-06-04 07:43] LABS: TROPONIN I < 0.012 ng/ml (0.0000-0.120)
[2022-06-04] MEDS: SODIUM CHLORIDE 1,000 ML IV SCH (08:05)
[2022-06-04] MEDS: LEVAQUIN 750 MG/150 ML D5W 750 MG/150 ML BAG IV SCH (08:06)
[2022-06-04] MEDS: LIPITOR PO SCH (08:39)
[2022-06-04] MEDS: ASPIRIN EC PO SCH (08:39)
[2022-06-04] MEDS ORDERED: XANAX PO PRN (11:20)
[2022-06-04] MEDS: LANTUS SUBCUT SCH ×2 (11:38→20:59)
[2022-06-04] MEDS: K-DUR PO SCH ×2 (11:42→17:02)
--- NOTE | 2022-06-04 12:00 | PCM.PROG ---
Attending Provider: ATTENDING PROVIDER: Dr. BORA HOPPER MD This patient is seen with Mela Lees, Nurse Practitioner. DATE OF SERVICE: 06/04/22 SUBJECTIVE: This 66 year old /WHITE F was hospitalized 06/03/22. The patient is resting comfortably. She is complaining of palpitations after neb treatment. Wheezing is improved, on 2L of oxygen. Will repeat ABG on 2L. Changed Albuterol to Xopenex. May be having some anxiety. Sugar has been elevated. She states she is breathing somewhat better today. REVIEW OF SYSTEMS: CONSTITUTIONAL: Weakness. No night sweats. No fatigue, malaise, lethargy. No fever or chills. HEENT: Eyes: No visual changes. No eye pain. No eye discharge. ENT: No runny nose. No epistaxis. No sinus pain. No odynophagia. No congestion. RESPIRATORY: Shortness of breath, cough. No hemoptysis. CARDIOVASCULAR: Palpitations. No angina symptoms. No CHF symptoms. No atypical chest pain for CAD. No orthopnea.. GASTROINTESTINAL: No abdominal pain. No nausea or vomiting. No diarrhea or constipation. No hematemesis. No hematochezia. GENITOURINARY: No urgency. No frequency. No dysuria. No hematuria. No obstructive symptoms. No discharge. No pain. No significant abnormal bleeding. MUSCULOSKELETAL: No musculoskeletal pain; no joint swelling. NEUROLOGICAL: Awake, alert, oriented to time, place and person. No headache. No neck pain. No syncope. No seizures. No dizziness. PSYCHIATRIC: Anxiety. No depression. No suicidal thoughts. No homicidal thoughts. SKIN: No rash. No lesions. No wounds. ENDOCRINE: No unexplained weight loss. No weight gain. HEMATOLOGIC/LYMPHATIC: No anemia. No purpura. No petechiae. No prolonged or excessive bleeding. No palpable lymph nodes. PHYSICAL EXAMINATION: GENERAL: The patient is awake, alert and oriented, lying/sitting in bed in no distress. VITAL SIGNS: Temperature 97.6 F, Pulse 87, Respiratory Rate 20, BP 133/62, Pulse Ox 97% HEENT: Head normocephalic, atraumatic. Eyes: Extraocular muscles are intact. Pupils are equal, round and reactive to light and accommodation. Ears: No lesions. Nose appeared normal. Throat: No exudate or erythema. NECK: Supple. No JVD, no carotid bruit. No lymphadenopathy or thyromegaly. LUNGS: Severely diminished breath sounds. Faint inspiratory and expiratory wheezing. Clear to auscultation. Percussion note normal. Chest symmetrical. HEART: S1, S2, no S3. No murmurs. No cyanosis or clubbing. No ascites. Pulses: Dorsalis pedis and posterior tibial pulses +1 to +2 both sides. ABDOMEN: Soft. Non-tender. Bowel sounds active. No CVA tenderness. No mass felt. EXTREMITIES: No edema. Full range of motion of all extremities, equal. NEUROLOGIC: No focal deficit. Cranial nerves II through XII are grossly intact. No headache. No double vision. SKIN: Not dry. Intact. Turgor-normal. LYMPHATIC: No palpable lymph nodes/no lymphedema. MUSCULOSKELETAL: Normal joints with no swelling. Muscle tone is normal. LAB REVIEW: 06/04/22 06:46 06/04/22 06:46 06/04/22 06:46: Sodium 135.2, Potassium 3.25 L, Chloride 99.3, Carbon Dioxide 28.8, Anion Gap 10.35, BUN 17.0, Creatinine 0.63, Estimated GFR (MDRD) 95.00, BUN/Creatinine Ratio 26.98, Glucose 296.7 H D, Calcium 8.59, Total Bilirubin 0.74, AST 43.4 H, ALT 39.7 H, Alkaline Phosphatase 109.7, Troponin I < 0.012, Total Protein 7.10, Albumin 3.85, Globulin 3.25, Albumin/Globulin Ratio 1.18 06/04/22 06:46: WBC 10.01 D, RBC 4.76, Hgb 14.3, Hct 43.8, MCV 92.0, MCH 30.0, MCHC 32.6, RDW Coeff of Haider 13.0, Plt Count 181, Immature Gran % (Auto) 0.4, Neut % (Auto) 82.5 H, Lymph % (Auto) 14.3, Hall % (Auto) 2.7, Eos % (Auto) 0.0, Baso % (Auto) 0.1, Neut # (Auto) 8.3 H, Lymph # (Auto) 1.4, Hall # (Auto) 0.3 L, Eos # (Auto) 0.0, Baso # (Auto) 0.0, Immature Gran # (Auto) 0.0 06/03/22 22:50: Troponin I < 0.012 06/03/22 18:30: Urine Color Yellow, Urine Clarity Clear, Urine pH 5.5, Ur Specific [place] >=1.030, Urine Protein Negative, Urine Glucose (UA) Negative, Urine Ketones Trace H, Urine Blood Negative, Urine Nitrite Negative, Urine Bilirubin Negative, Urine Urobilinogen 0.2, Ur Leukocyte Esterase Negative 06/03/22 16:40: Puncture Site Rrad, Base Excess 8.3 H, O2 Saturation 89.7 L, ABG pH 7.47 H, ABG pCO2 44.0, ABG pO2 54.0 L*, ABG HCO3 32.0 H, ABG Total CO2 33.4 H , Barak Test Pos, Hemoglobin 1.2, Oxyhemoglobin 88.0 L, Carboxyhemoglobin 2.0 H, Total Hemoglobin 15.1, FiO2 % 21.0 06/03/22 15:22: Lactic Acid 1.43 06/03/22 15:22: Sodium 138.7, Potassium 3.34 L, Chloride 102.3, Carbon Dioxide 31.2 H, Anion Gap 8.54, BUN 17.8 H, Creatinine 0.77, Estimated GFR (MDRD) 75.00, BUN/Creatinine Ratio 23.11, Glucose 82.7, Calcium 9.17, Total Bilirubin 0.81, AST 43.2 H, ALT 38.4 H, Alkaline Phosphatase 99.6, Troponin I < 0.012, NT-Pro-B Natriuret Pep 67.400, Total Protein 7.74, Albumin 4.11, Globulin 3.63, Albumin/Globulin Ratio 1.13 06/03/22 15:22: WBC 17.22 H, RBC 4.94, Hgb 15.1, Hct 45.6, MCV 92.3, MCH 30.6, MCHC 33.1, RDW Coeff of Haider 13.0, Plt Count 228, Neutrophils % (Manual) 43.0, Lymphocytes % (Manual) 33.0, Monocytes % (Manual) 5.0, Reactive Lymphocytes 19.0 H, Anisocytosis Not present 06/03/22 15:15: Influ A Molecular Assay Negative by naat, Influ B Molecular Assay Negative by naat 06/03/22 15:15: SARS CoV-2 RNA Rapid BALBIR Negative ASSESSMENT: Please see below. 1. Acute COPD exacerbation. 2. Leukocytosis. 3. Shortness of breath. 4. Acute respiratory failure. 5. Hypokalemia. 6. Diabetes mellitus type 2. PLAN: 1. Blood culture times two. 2. Resume long-acting insulin Lantus 60 b.i.d. sliding scale - if Basaglar is not available. 3. Stop Albuterol. 4. T4, TSH. 5. CT of chest with and without contrast. 6. Xanax .025 b.i.d. p.r.n. 7. Xopenex t.i.d. 8. Continue sliding scale. 9. Potassium 20 mg b.i.d. 10. RSV. Plan and coordination of the patient's care discussed in the presence of First [employer] and nurse. CONDITION: Stable SCRIBED BY: TRISTON BAXTER Rn On Site scribed while in presence of service performed by Dr. Hopper/Mela Lees APRN on 06/04/22 ([id number])
[2022-06-04 12:16] LABS: RSV MOLECULAR NEGATIVE BY NAAT (NEGATIVE)
--- NOTE | 2022-06-04 14:31 | CT ---
EXAM: CT THORAX HISTORY: Shortness of breath. TECHNIQUE: CT thorax with and without intravenous contrast. Multiplanar images presented. COMPARISON: 09/30/2015 FINDINGS: Normal heart size. There is mild atherosclerotic disease including coronary artery calcifi cations. No mediastinal or hilar lymphadenopathy. The lungs are clear. No vascular congestion, pne umothorax or pleural fluid. Moderate degenerative changes of the lower spine. No peripheral soft ti ssue abnormality. IMPRESSION: 1. Normal heart size. 2. There is mild atherosclerotic disease including coronary artery calcifications. 3. The lungs are clear. - - - - - All CT scans are performed using dose optimization techniques as appropriate to the performed exam an d include at least one of the following: Automated exposure control, adjustment of the mA and/or kV according t o size, and the use of iterative reconstruction technique.
--- NOTE | 2022-06-04 15:30 | PN ---
DATE OF SERVICE: 06/03/22 - ADMIT NOTE REASON FOR HOSPITALIZATION: Cough, congestion, mild respiratory distress. HISTORY OF PRESENT ILLNESS: 66-year-old white female came to the emergency room with the above complaints. The patient had been treated as an outpatient for the same problem with practically no improvement. The patient has chronic bronchial asthma. Oxygen saturation 96%. She was given nebs treatment, steroids. Chest x-ray is practically normal. Septic workup is negative. She will be hospitalized with acute exacerbation of COPD and she will be given antibiotics, steroids, nebs. ABGs will be done. Her vitals in the emergency room: Temperature 97.9, pulse 74, respiratory rate 20, blood pressure was 153/78, pulse ox 96. The patient seems to be stable. TIME SPENT: More than 35 minutes. Plan and coordination of the patient's care discussed in the presence of nurse. KARRIE
[2022-06-04] MEDS: XOPENEX 1.25 MG NEB SCH (17:16)
[2022-06-04] MEDS: ZESTRIL PO SCH (20:46)
[2022-06-04] MEDS: HYDROCHLOROTHIAZIDE PO SCH (20:46)
[2022-06-04] MEDS: LOPRESSOR PO SCH (20:46)
[2022-06-05] MEDS: SOLU-MEDROL 40 MG IVP SCH ×2 (04:46→14:54)
[2022-06-05] MEDS: XOPENEX 1.25 MG NEB SCH ×3 (05:00→11:18)
[2022-06-05 05:05] LABS: BASOPHILS % (AUTO) 0.1 % (0.0-3.0); HEMATOCRIT 45.2 % (37.0-47.0); HEMOGLOBIN 14.6 g/dl (12.0-16.0); IMMATURE GRANULOCYTE # (AUTO) 0.1 (0.0-1.0); IMMATURE GRANULOCYTE % (AUTO) 0.7 % (0.0-5.0); LYMPHOCYTES # (AUTO) 1.4 K/uL (0.60-3.4); LYMPHOCYTES % (AUTO) 12.1 (10.0-50.0); MEAN CORPUSCULAR HGB CONC 32.3 (31.8-35.4); MONOCYTES # (AUTO) 0.5 K/uL (0.4-2.0); MONOCYTES % (AUTO) 4.5 (0-10); NEUTROPHILS # (AUTO) 9.7 K/ul (2.0-6.9); NEUTROPHILS % (AUTO) 82.6 % (42.2-75.2); PLATELET COUNT 157 10^3/uL (140-440); RDW COEFFICIENT OF VARIATION 13.2 % (11.6-14.8); RED BLOOD COUNT 4.86 10^6/ul (4.20-5.40); WHITE BLOOD COUNT 11.75 K/ul (4.6-10.2)
[2022-06-05 05:20] LABS: ALANINE AMINOTRANSFERASE 32.9 U/L (0-35); ALBUMIN 3.94 g/dL (3.5-5.0); ALKALINE PHOSPHATASE 89.1 U/L (53-141); BILIRUBIN,TOTAL 0.78 mg/dL (0.2-1.3); BLOOD UREA NITROGEN 17.9 mg/dL (7-17); CALCIUM 9.35 mg/dL (8.4-10.2); CARBON DIOXIDE 33.8 mmol/L (22-30.0); CHLORIDE 101.5 mmol/L (98-107); CREATININE 0.68 mg/dL (0.60-1.30); GLUCOSE 234.6 mg/dL (74-106); POTASSIUM 4.18 mmol/L (3.5-5.1); TOTAL PROTEIN 7.32 g/dL (6.3-8.2)
[2022-06-05] MEDS: HUMULIN R SUBCUT PRN ×2 (05:33→11:13)
[2022-06-05] MEDS: SYNTHROID PO SCH ×2 (05:34)
[2022-06-05] MEDS: K-DUR PO SCH (08:26)
[2022-06-05] MEDS: LIPITOR PO SCH (08:26)
[2022-06-05] MEDS: LEVAQUIN 750 MG/150 ML D5W 750 MG/150 ML BAG IV SCH (08:26)
[2022-06-05] MEDS: ASPIRIN EC PO SCH (08:27)
[2022-06-05] MEDS: LANTUS SUBCUT SCH (08:59)
[2022-06-05 14:57] VITALS: BP 128/77; TEMP 97.4
[2022-06-05] MEDS ORDERED: XOPENEX 1.25 MG NEB PRN (15:52)
--- NOTE | 2022-06-06 19:37 | ECHO2D ---
Date of Exam: 06/05/2022 Ordering Physician: DR. BORA HOPPER Room #: [id number] Reason for Echo: CAD/ CHEST PAIN M-Mode Normal Adult Results LV Dimensions Normal Adult Results AoV Opening excursions >1.6 >1.6 LVEDD-base- 3.5-5.8 4.2 Ao root dimensions 2.0-3.7 3.1 LVESD-base- 3.1-4.6 L. Atrium dimensions 1.9-3.8 4.2 Post. Wall thickness 0.8-1.1 1.1 IV septum (thickness) 0.7-1.2 1.3 Post. Wall excursion 0.72-1.3 NORMAL Septal motion NORMAL Systolic motion R. Ventricular cavity 1.5-2.0 NORMAL LVEF 60% 73% Paradoxical septal wall motion NORMAL 2-D : 2-D M Mode Echocardiogram was performed using apical four chamber and left parasternal long and short axis views. Mitral, tricuspid and aortic valves appear to be normal. Contractility of the left ventricle seems to be normal, so is the cavity size. ENLARGED LEFT ATRIAL CAVITY. Aortic root appears to be normal. There is no pericardial effusion. There is no thrombus noted in the left ventricle or left atrial cavity. M-MODE: MV: NORMAL AV: NORMAL TV: NORMAL PV: NORMAL CHAMBER SIZE: ENLARGED LEFT ATRIAL CAVITY WALL MOTION: NORMAL PERICARDIUM: NORMAL INTERPRETATION: 1. LEFT VENTRICLE HYPERTROPHY WITH ENLARGED LEFT ATRIAL CAVITY 2. NORMAL VALVES 3. NORMAL LEFT VENTRICLE CAVITY AND LEFT VENTRICLE CONTRACTILITY UNCHANGED ECHO 2018 [facility]
--- NOTE | 2022-06-07 15:18 | PN ---
DATE OF SERVICE: 06/05/22 SUBJECTIVE: This 66 year old white female was hospitalized with reactive airway disease with acute bronchitis. The patient has been treated for the past two weeks with steroids. Her condition has improved some but she is still has on auscultation a mild wheeze. REVIEW OF SYSTEMS: CONSTITUTIONAL: No night sweats. No fatigue, malaise, lethargy. No fever or chills. HEENT: Eyes: No visual changes. No eye pain. No eye discharge. ENT: No runny nose. No epistaxis. No sinus pain. No sore throat. No odynophagia. No congestion. RESPIRATORY: No congestion. No hemoptysis. Shortness of breath on exertion. Also has cough once in a while. CARDIOVASCULAR: No angina symptoms. No CHF symptoms. No atypical chest pain for CAD. No palpitations. No PND. No orthopnea. GASTROINTESTINAL: No abdominal pain. No nausea or vomiting. No diarrhea or constipation. No hematemesis. No hematochezia. GENITOURINARY: No urgency. No frequency. No dysuria. No hematuria. No obstructive symptoms. No discharge. No pain. No significant abnormal bleeding. MUSCULOSKELETAL: No musculoskeletal pain; no joint swelling. NEUROLOGICAL: No headache. No neck pain. No syncope. No seizures. No dizziness. PSYCHIATRIC: Not anxious. No depression. No suicidal thoughts. No homicidal thoughts. SKIN: No rash. No lesions. No wounds. ENDOCRINE: No unexplained weight loss. No weight gain. HEMATOLOGIC/LYMPHATIC: No anemia. No purpura. No petechiae. No prolonged or excessive bleeding. No palpable lymph nodes. PHYSICAL EXAMINATION: GENERAL: The patient is in no distress. VITAL SIGNS: Temp 97.3, pulse 72, respiratory rate 20, blood pressure 134/80, pulse ox 98% HEENT: Head normocephalic, atraumatic. Eyes: Extraocular muscles are intact. Pupils are equal, round and reactive to light and accommodation. Ears: No lesions. Nose appeared normal. Throat: No exudate or erythema. NECK: Supple. No JVD, no carotid bruit. No lymphadenopathy or thyromegaly. LUNGS: Expiratory wheeze bilaterally. Percussion note normal. Chest symmetrical. HEART: S1, S2, no S3. No murmurs. No cyanosis or clubbing. No ascites. Pulses: Dorsalis pedis and posterior tibial pulses +1 to +2 bilaterally. ABDOMEN: Soft. Nontender. Bowel sounds active. No CVA tenderness. No mass felt. EXTREMITIES: No edema. Full range of motion of all extremities, equal. NEUROLOGIC: No focal deficit. Cranial nerves II through XII are grossly intact. No headache. No double vision. SKIN: Not dry. Intact. Turgor - normal. LYMPHATIC: No palpable lymph nodes/no lymphedema. MUSCULOSKELETAL: Normal joints with no swelling. Muscle tone is normal. LABS: Hemoglobin 14.6, hematocrit 45, WBC 11,000, normal differential, creatinine 0.6, BUN 17, potassium 4.1 ASSESSMENT: Acute COPD exacerbation seems to be under control Patient's last CT scan of the chest showed coronary artery calcification atherosclerosis, no tumor or mass or pneumonia noted. She was explained about the findings and she declined to have any stress test at present time but she will think about it. .Risk factors of coronary artery disease discussed. She is going to be discharged home on Levaquin, Prednisone and advised to continue the rest of the medications as before. Patient's BMI is almost to the morbid obesity range. She was advised to go to bariatric center. Condition: Stable Echo done at the time of discharge revealed enlarged LA cavity, unchanged from 2018 . TIME SPENT: More than 35 minutes. Plan and coordination of the patient's care discussed in the presence of nurse. KARRIE
--- NOTE | 2022-06-07 15:31 | PN ---
DATE OF SERVICE: 06/04/22 SUBJECTIVE: Patient was seen and examined with the nurse practitioner. Patient's condition is improving. She is feeling better but still has mild expiratory wheeze. She is able to walk and carry on with activities of daily living. CAD risk factors discussed as well as diabetes mellitus complications discussed. She was advised to be on a diet and lose weight. REVIEW OF SYSTEMS: CONSTITUTIONAL: No night sweats. No fatigue, malaise, lethargy. No fever or chills. HEENT: Eyes: No visual changes. No eye pain. No eye discharge. ENT: No runny nose. No epistaxis. No sinus pain. No sore throat. No odynophagia. No congestion. RESPIRATORY: No cough, no congestion. No hemoptysis. No shortness of breath. CARDIOVASCULAR: No angina symptoms. No CHF symptoms. No atypical chest pain for CAD. No palpitations. No PND. No orthopnea. GASTROINTESTINAL: No abdominal pain. No nausea or vomiting. No diarrhea or constipation. No hematemesis. No hematochezia. GENITOURINARY: No urgency. No frequency. No dysuria. No hematuria. No obstructive symptoms. No discharge. No pain. No significant abnormal bleeding. MUSCULOSKELETAL: No musculoskeletal pain; no joint swelling. NEUROLOGICAL: No headache. No neck pain. No syncope. No seizures. No dizziness. PSYCHIATRIC: Not anxious. No depression. No suicidal thoughts. No homicidal thoughts. SKIN: No rash. No lesions. No wounds. ENDOCRINE: No unexplained weight loss. No weight gain. HEMATOLOGIC/LYMPHATIC: No anemia. No purpura. No petechiae. No prolonged or excessive bleeding. No palpable lymph nodes. PHYSICAL EXAMINATION: GENERAL: The patient is in no distress. HEENT: Head normocephalic, atraumatic. Eyes: Extraocular muscles are intact. Pupils are equal, round and reactive to light and accommodation. Ears: No lesions. Nose appeared normal. Throat: No exudate or erythema. NECK: Supple. No JVD, no carotid bruit. No lymphadenopathy or thyromegaly. LUNGS: Expiratory wheeze. Percussion note normal. Chest symmetrical. HEART: S1, S2, no S3. No murmurs. No cyanosis or clubbing. No ascites. Pulses: Dorsalis pedis and posterior tibial pulses +1 to +2 bilaterally. ABDOMEN: Soft. Nontender. Bowel sounds active. No CVA tenderness. No mass felt. EXTREMITIES: No edema. Full range of motion of all extremities, equal. NEUROLOGIC: No focal deficit. Cranial nerves II through XII are grossly intact. No headache. No double vision. SKIN: Not dry. Intact. Turgor - normal. LYMPHATIC: No palpable lymph nodes/no lymphedema. MUSCULOSKELETAL: Normal joints with no swelling. Muscle tone is normal. TIME SPENT: More than 35 minutes. Plan and coordination of the patient's care discussed in the presence of nurse. KARRIE
--- NOTE | 2022-06-07 15:49 | DS ---
DATE OF SERVICE: 06/05/22 FINAL DIAGNOSIS Acute COPD exacerbation Chronic lung disease with history of asthma Morbid obesity Diabetes mellitus Hypertension Dyslipidemia Hypothyroidism Coronary artery disease by CT scan of chest Atherosclerosis by CT scan of the chest DISCHARGE INSTRUCTIONS: Followup appointment in five days for follow up MEDICATIONS AT DISCHARGE: Aspirin Levothyroxine Lisinopril Metformin Metoprolol [place] Singular Atorvastatin NEW PRESCRIPTIONS: Levaquin 500 PO daily for four days Prednisone 10 PO twice a day for five days after that, one daily for five days Education given about Prednisone and side effects. HOSPITAL COURSE: 66 year old white female who has been treated for acute bronchitis for the past ten days with antibiotics, steroids and has been improving. She came to the emergency room with respiratory distress and was immediately treated with IV steroids, nebs treatment and settled down. She was hospitalized for a few days and her condition has been stabilized. O2 saturation on room air was 96%. On discharge patient's condition has improved. On admission the patient had acute respiratory failure with PO2 of 54, PCO2 of 44 and PH of 7.47 with 90% saturation on room air. At the time of discharge the patient did not have any chest pain, no PND, no orthopnea and cardiovascular status was stable. She was not in any distress. Patient has been advised to have a stress test done because of multiple risk factors for coronary artery disease and she already has a coronary artery disease established by CT scan of the chest. She declined and will think about it. Condition at time of discharged - Stable. TIME SPENT: More than 60 minutes. MTDD
== END 2022-06-05 16:05 | disposition home or self-care (01) ==
LOC: ED 14:57 → MEDSURG A 16:46 → INTOOBSV 16:46 → MEDSURG A 17:20
PROVIDERS: ADMIT Internal Medicine; ATTEND Internal Medicine
DX: E03.9 Hypothyroidism, unspecified; E66.01 Morbid (severe) obesity due to excess calories; Z20.822 Contact with and (suspected) exposure to COVID-19; E11.65 Type 2 diabetes mellitus with hyperglycemia; D72.829 Elevated white blood cell count, unspecified; Z79.4 Long term (current) use of insulin; R53.1 Weakness; J96.00 Acute respiratory failure, unspecified whether with hypoxia or hypercapnia; I51.7 Cardiomegaly; E87.6 Hypokalemia; J45.901 Unspecified asthma with (acute) exacerbation; I25.10 Atherosclerotic heart disease of native coronary artery without angina pectoris; J44.1 Chronic obstructive pulmonary disease with (acute) exacerbation; Z68.30 Body mass index [BMI] 30.0-30.9, adult